=== PATIENT | female | born 1990 | race Caucasian/White ===

== ENCOUNTER 2017-12-17 11:25 | Emergency (ER) | payer OTHER ==
[~2017-12-17] VITALS: Ht 368.3 cm; Wt 92.1 kg
[2017-12-17 11:34] VITALS: Ht 368.3 cm; Wt 92.1 kg
[2017-12-17 13:05] VITALS: BP 118/74
== END 2017-12-17 13:05 | disposition home or self-care (01) ==
LOC: ED 11:25
DX: H66.91 Otitis media, unspecified, right ear (principal); R05 Cough; R09.81 Nasal congestion

== ENCOUNTER 2018-01-11 07:10 | Emergency (ER) | payer OTHER ==
[~2018-01-11] VITALS: Ht 172.7 cm; Wt 92.5 kg
[2018-01-11 07:15] VITALS: BP 114/62; Ht 172.7 cm; Wt 92.5 kg
== END 2018-01-11 07:40 | disposition home or self-care (01) ==
LOC: ED 07:10
DX: J02.9 Acute pharyngitis, unspecified (principal); I88.9 Nonspecific lymphadenitis, unspecified

== ENCOUNTER 2018-01-16 03:54 | Emergency (ER) | payer OTHER ==
[~2018-01-16] VITALS: Ht 172.7 cm; Wt 92.5 kg
[2018-01-16 04:13] VITALS: Ht 172.7 cm; Wt 92.5 kg
[2018-01-16 05:58] VITALS: BP 106/63
== END 2018-01-16 05:58 | disposition home or self-care (01) ==
LOC: ED 03:54
DX: J06.9 Acute upper respiratory infection, unspecified (principal); R59.9 Enlarged lymph nodes, unspecified

== ENCOUNTER 2018-11-13 23:26 | Emergency (ER) | payer OTHER ==
[~2018-11-13] VITALS: Ht 172.7 cm; Wt 90.7 kg
[2018-11-13 23:54] VITALS: Ht 172.7 cm; Wt 90.7 kg
[2018-11-14 04:44] VITALS: BP 115/72
== END 2018-11-14 04:44 | disposition home or self-care (01) ==
LOC: ED 23:26
DX: J20.9 Acute bronchitis, unspecified (principal); H10.33 Unspecified acute conjunctivitis, bilateral
CPT/HCPCS: 87804

== ENCOUNTER 2020-02-25 09:53 | Emergency (ER) | payer OTHER ==
[~2020-02-25] VITALS: Ht 172.7 cm; Wt 90.3 kg
[2020-02-25 09:59] VITALS: Ht 172.7 cm; Wt 90.3 kg
[2020-02-25 12:37] VITALS: BP 111/71
== END 2020-02-25 12:37 | disposition home or self-care (01) ==
LOC: ED 09:53
DX: S16.1XXA Strain of muscle, fascia and tendon at neck level, initial encounter (principal); S39.012A Strain of muscle, fascia and tendon of lower back, initial encounter; V43.52XA Car driver injured in collision with other type car in traffic accident, initial encounter; Y93.I9 Activity, other involving external motion; Y92.413 State road as the place of occurrence of the external cause; Y99.8 Other external cause status
CPT/HCPCS: Q0092

== ENCOUNTER 2020-03-10 04:40 | Emergency (ER) | payer OTHER, SELFPAY ==
[~2020-03-10] VITALS: Ht 162.6 cm; Wt 88.5 kg
[2020-03-10 04:41] VITALS: Ht 162.6 cm; Wt 88.5 kg
[2020-03-10 07:46] LABS: BASOPHIL % 0.3 % (0-2); RED CELL DISTRIBUTION WIDTH 13.8 % (11.5-14.5)
[2020-03-10 08:04] LABS: CALCIUM 7.4 mg/dL (8.5-10.1); CHLORIDE SERUM 105 mmol/L (98-107); CREATININE SERUM 0.7 mg/dL (0.6-1.0); GFR1 > 60 mL/min; GLUCOSE SERUM 92 mg/dL (74-106); POTASSIUM SERUM 3.6 mmol/L (3.5-5.1); SODIUM SERUM 140 mmol/L (136-145)
[2020-03-10 08:09] LABS: PLATELET COUNT 129 x10^3mcL (130-400)
[2020-03-10 08:10] LABS: ALBUMIN 3.3 g/dL (3.4-5.0); ALKALINE PHOSPHATASE 39 U/L (46-116); ALT/SGPT 71 U/L (14-59); AST/SGOT 45 U/L (15-37); BILIRUBIN TOTAL 0.2 mg/dL (0.20-1.00); C REACTIVE PROTEIN 3.7 mg/dL (<=0.9); LACTIC DEHYDROGENASE (LDH) 249 U/L (100-190); TOTAL PROTEIN, SERUM 6.8 g/dL (6.4-8.2)
[2020-03-10 09:41] LABS: microscopic required? YES; urine erythrocyte NEGATIVE (NEGATIVE)
[2020-03-10 10:40] VITALS: BP 89/54
== END 2020-03-10 10:46 | disposition home or self-care (01) ==
LOC: ED 04:40
PROVIDERS: Specialist
DX: J18.9 Pneumonia, unspecified organism (principal)
CPT/HCPCS: 36600; 83880; 85378; 87804; J0456; J0696; Q0092; U0003-CS

== ENCOUNTER 2020-06-02 10:05 | Emergency (ER) | payer OTHER ==
[~2020-06-02] VITALS: Ht 172.7 cm; Wt 90.7 kg
[2020-06-02 10:14] VITALS: Ht 172.7 cm; Wt 90.7 kg
[2020-06-02 12:10] LABS: BASOPHIL % 0.5 % (0-2); PLATELET COUNT 215 x10^3mcL (130-400)
[2020-06-02 12:17] LABS: microscopic required? YES; urine erythrocyte TRACE (NEGATIVE)
[2020-06-02 12:37] LABS: ALBUMIN 3.6 g/dL (3.4-5.0); ALKALINE PHOSPHATASE 40 U/L (46-116); ALT/SGPT 19 U/L (14-59); AST/SGOT 14 U/L (15-37); BILIRUBIN TOTAL 0.3 mg/dL (0.20-1.00); CARBON DIOXIDE 29.4 mmol/L (21-32); CHLORIDE SERUM 103 mmol/L (98-107); CREATININE SERUM 0.8 mg/dL (0.6-1.0); GFR1 > 60 mL/min; GLUCOSE SERUM 89 mg/dL (74-106); LIPASE 150 IU/L (73-393); POTASSIUM SERUM 3.7 mmol/L (3.5-5.1); SODIUM SERUM 138 mmol/L (136-145); TOTAL PROTEIN, SERUM 7.3 g/dL (6.4-8.2)
[2020-06-02 12:41] LABS: CALCIUM 8.8 mg/dL (8.5-10.1)
[2020-06-02 15:01] VITALS: BP 1117/75
== END 2020-06-02 15:01 | disposition home or self-care (01) ==
LOC: ED 10:05
PROVIDERS: Specialist
DX: K92.1 Melena (principal); Z87.11 Personal history of peptic ulcer disease
CPT/HCPCS: 87046; 87046-59

== ENCOUNTER 2020-06-22 19:18 | Emergency (ER) | payer OTHER ==
[~2020-06-22] VITALS: Ht 172.7 cm; Wt 93.0 kg
[2020-06-22 19:41] VITALS: BP 112/48; Ht 172.7 cm; Wt 93.0 kg
[2020-06-22 22:51] LABS: BASOPHIL % 0.6 % (0-2); PLATELET COUNT 199 x10^3mcL (130-400); RED CELL DISTRIBUTION WIDTH 14.2 % (11.5-14.5)
[2020-06-22 23:00] LABS: CALCIUM 8.6 mg/dL (8.5-10.1); CARBON DIOXIDE 29.2 mmol/L (21-32); CHLORIDE SERUM 103 mmol/L (98-107); CREATININE SERUM 0.7 mg/dL (0.6-1.0); GFR1 > 60 mL/min; GLUCOSE SERUM 88 mg/dL (74-106); POTASSIUM SERUM 3.2 mmol/L (3.5-5.1); SODIUM SERUM 138 mmol/L (136-145)
[2020-06-22 23:08] LABS: ALBUMIN 3.7 g/dL (3.4-5.0); ALKALINE PHOSPHATASE 45 U/L (46-116); ALT/SGPT 26 U/L (14-59); AST/SGOT 17 U/L (15-37); BILIRUBIN TOTAL 0.24 mg/dL (0.20-1.00); TOTAL PROTEIN, SERUM 7.4 g/dL (6.4-8.2)
== END 2020-06-23 00:56 | disposition home or self-care (01) ==
LOC: ED 19:18
PROVIDERS: Emergency Medicine
DX: S20.212A Contusion of left front wall of thorax, initial encounter (principal); V49.9XXA Car occupant (driver) (passenger) injured in unspecified traffic accident, initial encounter; Y93.I9 Activity, other involving external motion; Y92.413 State road as the place of occurrence of the external cause; Y99.8 Other external cause status
CPT/HCPCS: Q9967